=== PATIENT | female | born 1950 | race Caucasian/White ===

== ENCOUNTER 2018-09-28 11:07 | Day surgery (SDC) | payer MEDICARE, BC ==
[2018-09-28] VITALS (10 sets, daily range): BP systolic 111–147; BP diastolic 59–91
[~2018-09-28] VITALS: Ht 157.5 cm; Wt 65.2 kg
[~2018-09-28 11:07] MED LIST: ATOR40TA PO; METF-950 PO; OMEP20TA23 PO
[2018-09-28] MEDS ORDERED: MESSAGE TO PHARMACY PO ONE (11:35)
[2018-09-28] MEDS ORDERED: dextrose 50%-water 50ml dispensing syringe IV PRN ×2 (11:35)
[2018-09-28] MEDS ORDERED: insulin Lispro (HumaLOG) vial - multi-dose SQ SCH (11:35)
[2018-09-28] MEDS ORDERED: dextrose ORAL solution 15 GM/59 ML bottle PO PRN ×2 (11:35)
[2018-09-28] MEDS ORDERED: glucagon, human recombinant 1mg kit SUBCUT PRN (11:35)
[2018-09-28] MEDS ORDERED: normal saline 1000ml 1,000 ML IV SCH (11:40)
[2018-09-28] MEDS ORDERED: diphenhydrAMINE 25mg capsule PO PRN (11:40)
[2018-09-28] MEDS ORDERED: nitroGLYCERIN 0.4mg SUBLingual tab SL PRN (11:40)
[2018-09-28] MEDS ORDERED: LORazepam 0.5 MG tablet PO PRN (11:40)
[2018-09-28 12:28] LABS: BASOPHILS % (AUTO) 0.8 % (0-1); EOSINOPHILS # (AUTO) 0.2 X10'3 (0-0.9); EOSINOPHILS % (AUTO) 4.7 % (0-6); HEMATOCRIT 40.8 % (35.0-45.0); HEMOGLOBIN 13.7 g/dl (12.0-16.0); LYMPHOCYTES # (AUTO) 1.3 X10'3 (1.1-4.8); LYMPHOCYTES % (AUTO) 24.4 % (21-51); MEAN CORPUSCULAR HGB CONC 33.6 % (33.0-36.5); MEAN CORPUSCULAR VOLUME 95.3 FL (78-98); MEAN PLATELET VOLUME 8.7 FL (7.4-10.4); MONOCYTES # (AUTO) 0.5 X10'3 (0-0.9); MONOCYTES % (AUTO) 9.3 % (2-12); NEUTROPHILS # (AUTO) 3.2 X10'3 (1.8-7.7); NEUTROPHILS % (AUTO) 60.8 % (42-75); PLATELET COUNT 182 X10'3 (140-440); RED BLOOD COUNT 4.28 X10'6 (4.20-5.60); RED CELL DISTRIBUTION WIDTH 13.2 % (11.5-14.5); WHITE BLOOD COUNT 5.3 X10'3 (4.5-11.0)
[2018-09-28 12:37] LABS: ALBUMIN 4.2 G/DL (3.4-5.0); ANION GAP 9 (8-16); BLOOD UREA NITROGEN 21 MG/DL (7-18); BUN/CREATININE RATIO 19.4 (6.6-38.0); CALCIUM 9.8 MG/DL (8.5-10.1); CHLORIDE 105 MMOL/L (99-107); CREATININE 1.08 MG/DL (0.40-0.90); GLUCOSE 103 MG/DL (70-104); POTASSIUM 4.9 MMOL/L (3.5-5.1); SODIUM 142 MMOL/L (135-145); TOTAL CARBON DIOXIDE 27.9 MMOL/L (24-32); eGFR 51 ML/MIN
[2018-09-28] MEDS ORDERED: CHOL500061 PO (12:59)
[2018-09-28] MEDS ORDERED: NAPR220C15 PO (13:00)
[2018-09-28 13:38] LABS: PARTIAL THROMBOPLASTIN TIME 36 SECONDS (22-32); PROTHROMBIN TIME 10.1 SECONDS (9.0-12.0)
[2018-09-28] MEDS ORDERED: midazolam 2 mg/2 ml injection ONE ×2 (14:17→15:05)
[2018-09-28] MEDS ORDERED: fentaNYL/PF 50MCG/1 ML 2ML syringe ONE (14:18)
[2018-09-28] MEDS ORDERED: iohexol 350MG/ML 100ml bottle IV ONE (14:18)
[2018-09-28] MEDS ORDERED: iohexol 350 MG/ML 50ML vial IV ONE (14:18)
[2018-09-28] MEDS ORDERED: LIDOcaine 1% (10mg/ml)w/preservative injection 20ml MDV ONE (14:18)
[2018-09-28] MEDS ORDERED: OXAZEpam 15mg capsule PO PRN (15:45)
[2018-09-28] MEDS ORDERED: proCHLORperazine 10 MG/2 ml inj IV PRN (15:45)
[2018-09-28] MEDS ORDERED: ondansetron/PF 4mg/2ml inj IV PRN (15:45)
[2018-09-28] MEDS ORDERED: insulin glargine (Lantus) pen - multi-dose SQ SCH (21:00)
== END 2018-09-28 20:35 | disposition home or self-care (01) ==
LOC: SSTAY O 11:07
PROVIDERS: ATTEND Internal Medicine Cardiovascular Disease
DX: I25.10 Atherosclerotic heart disease of native coronary artery without angina pectoris (principal); K21.9 Gastro-esophageal reflux disease without esophagitis; E78.5 Hyperlipidemia, unspecified; E11.9 Type 2 diabetes mellitus without complications; G89.29 Other chronic pain; Z87.891 Personal history of nicotine dependence; Z79.84 Long term (current) use of oral hypoglycemic drugs; Z88.5 Allergy status to narcotic agent; Z88.6 Allergy status to analgesic agent; Z87.01 Personal history of pneumonia (recurrent); Z79.01 Long term (current) use of anticoagulants; Z87.442 Personal history of urinary calculi; Z87.39 Personal history of other diseases of the musculoskeletal system and connective tissue; Z72.89 Other problems related to lifestyle; Z98.51 Tubal ligation status; Z98.890 Other specified postprocedural states; Z79.899 Other long term (current) drug therapy
CPT/HCPCS: 36415; 71046; 80048; 83036; 85025; 85610; 85730; 93005; 93458; 99152; 99153; A6257; C1760; J1644; J2001; J2250; J3010; J7030; Q0163; Q9967; A4620; C1769; J1815